=== PATIENT | male | born 1935 | race Caucasian/White ===

== ENCOUNTER 2022-01-06 01:42 | Emergency (ER) | payer OTHER ==
--- OUTSIDE RECORDS SUMMARY | 2022-01-06 01:45 | XMS REPORT | Continuity of Care Document ---
:1935 Author Organization [facility] t Address [address] [place] [address] [address] [place] [address] Care Team Providers Name Role Phone Asked, No Pcp Primary Care Physician Unavailable ASHWIN, NOE Attending Clinician Unavailable ASHWIN, NOE Admitting Clinician Unavailable Problems Condition Condition Condition Status Onset Resolution Last Treating Co mments Source Name Details Category Date Date Treatment Clinician Date Breakdown Breakdown Disease Active 2019-04 [facility] (mechanica (mechanica 0-22 st l) of l) of 00:00: Hospita cardiac cardiac 00 l pulse pulse generator generator (battery), (battery), initial initial encounter encounter AF AF Disease Active 2017-04 [facility] (paroxysma (paroxysma 0-19 st l atrial l atrial 00:00: Hospit a fibrillati fibrillati 00 l on) on) Allergies, Adverse Reactions, Alerts This patient has no known allergies or adverse reactions. Social History Social Habit Start Date Stop Date Quantity Comments Source History of Current smoker [facility] use [facility] Alcohol intake 2020-02-11 2020-02-11 Current drinker [facility] 00:00:00 00:00:00 of alcohol Hospital (finding) Tobacco use and 2018-02-02 2018-02-02 Former smokeless [facility] exposure 00:00:00 00:00:00 tobacco user Hospital Sex Assigned At [birth year] [facility] 00:00:00 00:00:00 Hospital Smoking Status Start Date Stop Date Source Ex-smoker 2018-02-02 00:00:00 2018-02-02 00:00:00 [facility] Medications Ordered Filled Start Stop Current Ordering Indication Dosage Frequency Signature Comments Components Source Medication Medication Date Date Medication? Clinician (SIG) Name Name atorvastati 2019-04 Yes 20mg QD Take 20 mg [facility] n (LIPITOR) 0-[address] 20 MG 19:17: daily. Hospita tablet 11 Default OP l ins metoprolol 2019-04 Yes 25mg QD Take 25 mg M [facility]i succinate 0-[address] XL 19:17: daily. Hospita (TOPROL-XL) 11 l 25 mg 24 hr tablet flecainide 2019-04 Yes 150mg QD Take 150 Me thodi (TAMBOCOR) 0-[address] 100 MG 19:17: mouth Hospita tablet 11 daily. l allopurinol 2019-04 Yes 300mg QD Take 300 M [facility]i (ZYLOPRIM) 0-[address] 300 MG 19:17: mouth Hospita tablet 11 daily. l Procedures This patient has no known procedures. Plan of Care Planned Activity Planned Date Details Comments Source Future Scheduled 2021-12-16 HEPATITIS B VACCINES Met [facility] Test 07:54:46 (1 of 3 - 3-dose series) [code = HEPATITIS B VACCINES (1 of 3 - 3-dose series)] Future Scheduled 2021-12-16 COVID-19 VACCINE (#1) [facility] Test 07:54:46 [code = COVID-19 VACCINE (#1)] Future Scheduled 2021-12-16 SHINGLES VACCINES (1 Met [facility] Test 07:54:46 of 2) [code = SHINGLES VACCINES (1 of 2)] Future Scheduled 2021-12-16 65+ PNEUMOCOCCAL [facility] Test 07:54:46 VACCINE (1 - PCV) [code = 65+ PNEUMOCOCCAL VACCINE (1 - PCV)] Future Scheduled 2021-12-16 INFLUENZA VACCINE [facility] Test 07:54:46 [code = INFLUENZA VACCINE] Encounters Start End Encounter Admission Attending Care Care Encounter Source Date/Time Date/Time Type Type Clinicians Facility Department ID 2020-02-06 2020-02-06 Outpatient [facility] [id number] [place] 00:00:00 00:00:00 NADIM [address] 2019-06-18 2019-06-18 Outpatient [facility] [id number] [place] 00:00:00 00:00:00 NADIM [address] 2019-06-18 2019-06-18 Outpatient [facility] [id number] [place] 00:00:00 00:00:00 NOE [address] Results This patient has no known results.
--- NOTE | 2022-01-06 02:19 | EDPHYS ---
Physician Documentation [facility] Name: Polo Middleton Age: 86 yrs Sex: Male : 1935 Arrival Date: 01/06/2022 Time: 01:44 Bed 5 Private MD: ED Physician Alejandro Bowles HPI: 01/06 02:11 This 86 yrs old Male presents to ER via Ambulatory with complaints of Insect Bite, Leg ms3 Pain. 02:11 86-year-old male with past medical history of hypertension presents to the emergency ms3 department after being stung by ground bees at 3 PM. Patient rates his pain a 10/10 and bilateral lower extremities. Patient denies alleviating or inciting factors. Patient states he took ibuprofen earlier in the day without relief of his pain. Patient denies nausea, vomiting, shortness of breath, throat closing.. Historical: - Allergies: 02:03 No Known Allergies; bb - Home Meds: 02:03 allopurinal [Active]; atorvastatin 40 mg Oral tab 1 tab once daily [Active]; Metoprolol bb Tartrate Oral [Active]; amlodipine oral [Active]; - PMHx: 02:03 Hypertension; bb - Immunization history:: Client reports receiving the 2nd dose of the Covid vaccine, Moderna. - Social history:: Smoking status: Patient denies any tobacco usage or history of. ROS: 02:11 Constitutional: Negative for fever, and chills. ENT: Negative for injury, pain, and ms3 discharge, Neck: Negative for injury, pain, and swelling, Cardiovascular: Negative for chest pain, and palpitations. Respiratory: Negative for shortness of breath, cough, wheezing, and pleuritic chest pain, Abdomen/GI: Negative for abdominal pain, nausea, vomiting, diarrhea, and constipation. 02:11 Neuro: Negative for headache, weakness, numbness, tingling. 02:11 MS/extremity: Positive for Lower extremity pain. 02:11 All other systems are negative. Exam: 02:11 Constitutional: This is a well developed, well nourished patient who is awake, alert, ms3 and in no acute distress. Head/Face: Normocephalic, atraumatic. ENT: Nares patent. No nasal discharge, no septal abnormalities noted. Tympanic membranes are normal and external auditory canals are clear. Oropharynx with no redness, swelling, or masses, exudates, or evidence of obstruction, uvula midline. Mucous membranes moist. Neck: Trachea midline, no cervical lymphadenopathy. Supple, full range of motion without nuchal rigidity, or vertebral point tenderness. No Meningismus. Chest/axilla: Normal chest wall appearance and motion. Nontender with no deformity. Cardiovascular: Regular rate and rhythm with a normal S1 and S2. No gallops, murmurs, or rubs. Normal PMI, no JVD. No pulse deficits. Respiratory: Lungs have equal breath sounds bilaterally, clear to auscultation and percussion. No rales, rhonchi or wheezes noted. No increased work of breathing, no retractions or nasal flaring. Abdomen/GI: Soft, non-tender, with normal bowel sounds. No distension or tympany. No guarding or rebound. No evidence of tenderness throughout. Skin: Warm, dry with normal turgor. Normal color with no rashes, no lesions, and no evidence of cellulitis. MS/ Extremity: Pulses equal, no cyanosis. Neurovascular intact. Full, normal range of motion. Psych: Awake, alert, with orientation to person, place and time. Behavior, mood, and affect are within normal limits. Vital Signs: 02:00 BP 153 / 81; Pulse 70; Resp 16 S; Pulse Ox 95% on R/A; Weight 83.91 kg (R); Height 6 bb ft. 1 in. (185.42 cm) (R); Pain 10/10; 02:02 Temp 98.2; tw5 02:00 Body Mass Index 24.41 (83.91 kg, 185.42 cm) bb MDM: 02:11 Data reviewed: vital signs, nurses notes, and as a result, I will discharge patient. ms3 Counseling: I had a detailed discussion with the patient and/or guardian regarding: the historical points, exam findings, and any diagnostic results supporting the discharge/admit diagnosis, the need for outpatient follow up, to return to the emergency department if symptoms worsen or persist or if there are any questions or concerns that arise at home. Special discussion: I discussed with the patient/guardian in detail that at this point there is no indication for admission to the hospital. It is understood, however, that if the symptoms persist or worsen the patient needs to return immediately for re-evaluation. ED course: Discussed treatment plan with patient. Patient understands and agrees with plan. All questions were answered. Return precautions discussed include worsening symptoms, or any other concerns.. 02:18 Patient medically screened. ms3 Administered Medications: 02:22 Drug: predniSONE 40 mg Route: PO; jb4 02:44 Follow up: Response: No adverse reaction tw5 02:23 Drug: TORadol (ketorolac) 15 mg Route: IM; Site: left deltoid; jb4 02:44 Follow up: Response: No adverse reaction tw5 Disposition Summary: 01/06/22 02:18 Discharge Ordered Location: Home ms3 Condition: Stable ms3 Diagnosis - Insect bite (nonvenomous) of lower leg ms3 Followup: ms3 - With: Private Physician - When: 2 - 3 days - Reason: Recheck today's complaints Discharge Instructions: - Discharge Summary Sheet ms3 - Insect Bite, Adult ms3 Forms: - Medication Reconciliation Form ms3 - Thank You Letter ms3 - Antibiotic Education ms3 - Prescription Opioid Use ms3 Prescriptions: - Medrol (Gasper) 4 mg Oral Tablets, Dose Pack - take 1 tablet by ORAL route as directed - follow package instructions; 1 ms3 packet; Refills: 0, Product Selection Permitted Signatures: Elisa Will RN RN bb Randy Benavides RN RN jb4 Alejandro Bowles DO DO ms3 Miguel Woodardy tw5
--- NOTE | 2022-01-06 02:19 | ER ---
Nurse's Notes [facility] Name: Polo Middleton Age: 86 yrs Sex: Male : 1935 Arrival Date: 01/06/2022 Time: 01:44 Bed 5 Private MD: Diagnosis: Insect bite (nonvenomous) of lower leg Presentation: 01/06 02:00 Chief complaint: Patient states: he was out mowing today and was bitten on the legs by bb a bunch of "ground bees" and the pain is 10/10 and he can't sleep. Coronavirus screen: At this time, the client does not indicate any symptoms associated with coronavirus-19. Ebola Screen: No symptoms or risks identified at this time. Initial Sepsis Screen: Does the patient meet any 2 criteria? No. Patient's initial sepsis screen is negative. Does the patient have a suspected source of infection? No. Patient's initial sepsis screen is negative. Risk Assessment: Do you want to hurt yourself or someone else? Patient reports no desire to harm self or others. Onset of symptoms was January 05, 2022. 02:00 Method Of Arrival: Ambulatory bb 02:00 Acuity: ISAIAS 5 bb Triage Assessment: 02:43 Bite description: bite. General: Appears in no apparent distress. Behavior is calm, tw5 cooperative, appropriate for age. 02:45 Bite description: animal information: vaccination(s) is not applicable. tw5 Historical: - Allergies: 02:03 No Known Allergies; bb - Home Meds: 02:03 allopurinal [Active]; atorvastatin 40 mg Oral tab 1 tab once daily [Active]; Metoprolol bb Tartrate Oral [Active]; amlodipine oral [Active]; - PMHx: 02:03 Hypertension; bb - Immunization history:: Client reports receiving the 2nd dose of the Covid vaccine, Moderna. - Social history:: Smoking status: Patient denies any tobacco usage or history of. Screenin:43 Abuse screen: Denies threats or abuse. Denies injuries from another. Nutritional tw5 screening: No deficits noted. Tuberculosis screening: No symptoms or risk factors identified. Fall Risk None identified. Assessment: 02:43 Pain: Denies pain. tw5 Vital Signs: 02:00 BP 153 / 81; Pulse 70; Resp 16 S; Pulse Ox 95% on R/A; Weight 83.91 kg (R); Height 6 bb ft. 1 in. (185.42 cm) (R); Pain 10/10; 02:02 Temp 98.2; tw5 02:00 Body Mass Index 24.41 (83.91 kg, 185.42 cm) ED Course: 01:44 Patient arrived in ED. bp1 01:59 Alejandro Bowles DO is Attending Physician. ms3 02:02 Raven Woodard is Primary Nurse. tw5 02:03 Triage completed. bb 02:03 Arm band placed on Patient placed in an exam room, on a stretcher, on pulse oximetry. bb 02:43 Patient has correct armband on for positive identification. tw5 02:43 No provider procedures requiring assistance completed. Patient did not have IV access tw5 during this emergency room visit. Administered Medications: 02:22 Drug: predniSONE 40 mg Route: PO; jb4 02:44 Follow up: Response: No adverse reaction tw5 02:23 Drug: TORadol (ketorolac) 15 mg Route: IM; Site: left deltoid; jb4 02:44 Follow up: Response: No adverse reaction tw5 Medication: 02:43 VIS not applicable for this client. tw5 Outcome: 02:18 Discharge ordered by . ms3 02:43 Discharged to home ambulatory. tw5 02:43 Condition: good 02:43 Discharge instructions given to patient, Instructed on discharge instructions, follow up and referral plans. Demonstrated understanding of instructions, follow-up care, medications, Prescriptions given X 1. 02:45 Patient left the ED. tw5 Signatures: Elisa Will RN RN Randy Benavides RN RN jb Alejandro Bowles DO DO ms3 Roxy Russo bp1 Raven Woodard tw5
[2022-01-06] MEDS ORDERED: predniSONE 20 MG TAB ONE (02:29)
[2022-01-06] MEDS ORDERED: KETOROLAC 30 MG/ML INJ ONE (02:29)
[2022-01-07 20:29] VITALS: BP 153/81; O2SAT 95
[2022-01-07 20:30] VITALS: TEMP 98.2
== END 2022-01-06 02:45 | disposition home or self-care (01) ==
LOC: ER 01:42
DX: S80.862A Insect bite (nonvenomous), left lower leg, initial encounter (principal); I10 Essential (primary) hypertension
CPT/HCPCS: 96372; 99283; J7512

== ENCOUNTER 2023-09-15 12:31 | Emergency (ER) | payer OTHER ==
[2023-09-15] MEDS ORDERED: MAGNESIUM SULFATE 1 gm IVPB 1 GM/100 ML BAG IV ONE ×2 (13:07→14:10)
[2023-09-15] MEDS ORDERED: NA CHLORIDE 0.9% 1,000 ML ONE (13:07)
[2023-09-15] MEDS ORDERED: ASPIRIN 81 MG CHEWABLE TABLET ONE (13:07)
--- NOTE | 2023-09-15 13:18 | EDPHYS ---
Physician Documentation [facility] Name: Polo Middleton Age: 87 yrs Sex: Male : 1935 Arrival Date: 09/15/2023 Time: : Bed 17 Private MD: ED Physician Iker Guardado HPI: 09/14 13:04 This 87 yrs old Male presents to ER via Ambulatory with complaints of Sent By [facility] DR-Pacemaker. 13:04 The patient presents with a history of heart racing. Context: The symptoms occur during [facility] sleep. Onset: The symptoms/episode began/occurred last night. Duration: The patient or guardian reports a single episode, that is now resolved. Modifying factors: The symptoms are aggravated by nothing. The symptoms are alleviated by nothing. Associated signs and symptoms: The patient has no apparent associated signs or symptoms. Severity of symptoms: At their worst the symptoms were mild in the emergency department the symptoms have improved markedly. The patient has not experienced similar symptoms in the past. Historical: - Allergies: 12:41 No Known Allergies; as6 - PMHx: 12:41 Hypertension; Atrial fibrillation; as6 - PSHx: 12:41 pacemaker; as6 - Immunization history:: Adult Immunizations up to date. - Infectious Disease History:: Denies. - Social history:: Smoking status: Patient denies any tobacco usage or history of. - Family history:: pertinent for. ROS: 13:04 Constitutional: Negative for fever, chills, and weight loss, Eyes: Negative for injury, carmelita pain, redness, and discharge, ENT: Negative for injury, pain, and discharge, Neck: Negative for injury, pain, and swelling, Respiratory: Negative for shortness of breath, cough, wheezing, and pleuritic chest pain, Abdomen/GI: Negative for abdominal pain, nausea, vomiting, diarrhea, and constipation, Back: Negative for injury and pain, : Negative for injury, bleeding, discharge, and swelling, MS/Extremity: Negative for injury and deformity, Skin: Negative for injury, rash, and discoloration, Neuro: Negative for headache, weakness, numbness, tingling, and seizure, Psych: Negative for depression, anxiety, suicide ideation, homicidal ideation, and hallucinations, Allergy/Immunology: Negative for hives, rash, and allergies, Endocrine: Negative for neck swelling, polydipsia, polyuria, polyphagia, and marked weight changes, Hematologic/Lymphatic: Negative for swollen nodes, abnormal bleeding, and unusual bruising, 13:04 Cardiovascular: Positive for palpitations, Exam: 13:04 Constitutional: This is a well developed, well nourished patient who is awake, alert, carmelita and in no acute distress. Head/Face: Normocephalic, atraumatic. Eyes: Pupils equal round and reactive to light, extra-ocular motions intact. Lids and lashes normal. Conjunctiva and sclera are non-icteric and not injected. Cornea within normal limits. Periorbital areas with no swelling, redness, or edema. ENT: Nares patent. No nasal discharge, no septal abnormalities noted. Tympanic membranes are normal and external auditory canals are clear. Oropharynx with no redness, swelling, or masses, exudates, or evidence of obstruction, uvula midline. Mucous membranes moist. Neck: Trachea midline, no thyromegaly or masses palpated, and no cervical lymphadenopathy. Supple, full range of motion without nuchal rigidity, or vertebral point tenderness. No Meningismus. Chest/axilla: Normal chest wall appearance and motion. Nontender with no deformity. No lesions are appreciated. Cardiovascular: Regular rate and rhythm with a normal S1 and S2. No gallops, murmurs, or rubs. Normal PMI, no JVD. No pulse deficits. Respiratory: Lungs have equal breath sounds bilaterally, clear to auscultation and percussion. No rales, rhonchi or wheezes noted. No increased work of breathing, no retractions or nasal flaring. Abdomen/GI: Soft, non-tender, with normal bowel sounds. No distension or tympany. No guarding or rebound. No evidence of tenderness throughout. Back: No spinal tenderness. No costovertebral tenderness. Full range of motion. Male : Normal genitalia with no discharge or lesions. Skin: Warm, dry with normal turgor. Normal color with no rashes, no lesions, and no evidence of cellulitis. MS/ Extremity: Pulses equal, no cyanosis. Neurovascular intact. Full, normal range of motion. Neuro: Awake and alert, GCS 15, oriented to person, place, time, and situation. Cranial nerves II-XII grossly intact. Motor strength 5/5 in all extremities. Sensory grossly intact. Cerebellar exam normal. Normal gait. Psych: Awake, alert, with orientation to person, place and time. Behavior, mood, and affect are within normal limits. 13:04 ECG was reviewed by the Attending Physician. Vital Signs: 12:40 BP 142 / 85; Pulse 72; Resp 16 S; Temp 97.9(TE); Pulse Ox 100% on R/A; Weight 81.65 kg as6 (R); Height 6 ft. 1 in. (R); Pain 0/10; 13:43 BP 131 / 64; Pulse 62; Resp 15 S; Pulse Ox 98% on R/A; Pain 0/10; kc6 15:01 BP 143 / 85; Pulse 70; Resp 18 S; Pulse Ox 99% on R/A; kc6 16:44 BP 142 / 82; Pulse 71; Resp 19 S; Pulse Ox 97% on R/A; kc6 12:40 Body Mass Index 23.75 (81.65 kg, 185.42 cm) as6 12:40 Pain Scale: Adult as6 13:43 Pain Scale: Adult kc6 MDM: 12:48 Patient medically screened. [facility] 13:15 Differential diagnosis: arrythmia, dehydration. Data reviewed: vital signs, nurses carmelita notes, lab test result(s), EKG, radiologic studies, plain films. Consideration of Admission/Observation. Consideration of Admission/Observation Escalation of care including admission/observation considered. I considered the following discharge prescriptions or medication management in the emergency department Medications were administered in the Emergency Department. See MAR. Independent interpretation of the following test(s) in the Emergency Department EKG: See my EKG interpretation above. Test considered but Not performed: Ultrasound no 2 d echo. Historians other than the Patient: pt well in formed. Care significantly affected by the following chronic conditions: Congestive Heart Failure, a fib. Counseling: I had a detailed discussion with the patient and/or guardian regarding the historical points, exam findings, and any diagnostic results supporting the discharge/admit diagnosis, lab results, radiology results, the need to transfer to another facility, for higher level of care, [facility] does not immediately have the required specialist. 09/14 12:47 Order name: Basic Metabolic Panel; Complete Time: 14:08 [facility] 09/14 12:47 Order name: CBC with Diff; Complete Time: 14:08 [facility] 09/14 12:47 Order name: LFT's; Complete Time: 14:08 [facility] 09/14 12:47 Order name: Magnesium; Complete Time: 14: [facility] 09/14 12:47 Order name: NT PRO-BNP; Complete Time: 14: [facility] 09/14 12:47 Order name: PT-INR; Complete Time: 14:08 [facility] 09/14 12:47 Order name: Troponin HS; Complete Time: 14: [facility] 09/14 12:47 Order name: XRAY Chest (1 view); Complete Time: 14: [facility] 09/14 12:47 Order name: Cardiac monitoring; Complete Time: 13: [facility] 09/14 12:47 Order name: EKG - Nurse/Tech; Complete Time: 13: [facility] 09/14 12:47 Order name: IV Saline Lock; Complete Time: 13:24 [facility] 09/14 12:47 Order name: Labs collected and sent; Complete Time: 13:24 [facility] 09/14 12:47 Order name: O2 Per Protocol; Complete Time: 13:24 [facility] 09/14 12:47 Order name: O2 Sat Monitoring; Complete Time: 13:24 [facility] EC:04 Rate is 63 beats/min. Rhythm is regular. QRS [place] is Normal. [place] interval is normal. QRS carmelita interval is normal. QT interval is normal. No Q waves. T waves are Normal. Clinical impression: Abnormal EKG without significant change and No evidence of ischemia. Interpreted by me. Reviewed by me. Administered Medications: 13:24 Drug: NS 0.9% IV 1000 ml IV at 125 ml/hr continuous Route: IV; Rate: 125 ml/hr; Site: [facility] right antecubital; 13:24 Drug: Magnesium Sulfate IVPB 1 grams IVPB once over 1 hrs Route: IVPB; Infused Over: 1 kc6 hrs; Site: right antecubital; 15:02 Follow up: Response: No adverse reaction; IV Status: Completed infusion; IV Intake: kc6 100ml 13:25 Drug: Aspirin PO Chewable Tablet 81 mg PO once Route: PO; kc6 13:43 Follow up: Response: No adverse reaction [facility] 14:39 Drug: Magnesium Sulfate IVPB 1 grams IVPB once over 1 hrs Route: IVPB; Infused Over: 1 kc6 hrs; Site: right antecubital; 16:44 Follow up: Response: No adverse reaction; IV Status: Completed infusion; IV Intake: kc6 100ml Disposition Summary: 09/15/23 13:17 Transfer Ordered Notes: Transfer Location: [facility] carmelita Reason: Higher level of care carmelita Condition: Fair carmelita Problem: new carmelita Symptoms: have improved carmelita Accepting Physician: to [facility](09/15/23 16:53) kc6 Diagnosis - Ventricular tachycardia carmelita - Presence of cardiac pacemaker carmelita Forms: - Medication Reconciliation Form carmelita - SBAR form carmelita Signatures: Dispatcher [employer] EDMS Iker Guardado MD MD cha Slawson, Ashby, RN RN as6 Magdalena Gilbert RN RN kc6 Corrections: (The following items were deleted from the chart) 12:48 12:47 Chest Single View+[email or web address] ordered. EDNY EDMS 16:53 13:17 to [facility] carmelita kc6
--- NOTE | 2023-09-15 13:18 | ER ---
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 Coronavirus screen: At this time, the client does not indicate any symptoms associated with coronavirus-19. Ebola Screen: No symptoms or risks identified at this time. Initial Sepsis Screen: Does the patient meet any 2 criteria? No. Patient's initial sepsis screen is negative. Does the patient have a suspected source of infection? No. Patient's initial sepsis screen is negative. Risk Assessment: Do you want to hurt yourself or someone else? Patient reports no desire to harm self or others. Onset of symptoms was September 14, 2023. 12:40 Method Of Arrival: Ambulatory as6 12:40 Acuity: ISAIAS 2 as6 Historical: - Allergies: 12:41 No Known Allergies; as6 - PMHx: 12:41 Hypertension; Atrial fibrillation; as6 - PSHx: 12:41 pacemaker; as6 - Immunization history:: Adult Immunizations up to date. - Infectious Disease History:: Denies. - Social history:: Smoking status: Patient denies any tobacco usage or history of. - Family history:: pertinent for. Screenin:41 [facility] ED Fall Risk Assessment (Adult) History of falling in the last 3 months, kc6 including since admission No falls in past 3 months (0 pts) Confusion or Disorientation No (0 pts) Intoxicated or Sedated No (0 pts) Impaired Gait No (0 pts) Mobility Assist Device Used No (0 pt) Altered Elimination No (0 pt) Score/Fall Risk Level 0 - 2 = Low Risk. Abuse screen: Denies threats or abuse. Denies injuries from another. Nutritional screening: No deficits noted. Tuberculosis screening: No symptoms or risk factors identified. Assessment: 13:42 General: Appears in no apparent distress. comfortable, well groomed, well developed, kc6 Behavior is calm, cooperative, appropriate for age. Pain: Denies pain. Neuro: Level of Consciousness is awake, alert, obeys commands, Oriented to person, place, time, situation, Appropriate for age. Cardiovascular: Reports palpitations, Denies chest pain, shortness of breath, Heart tones S1 S2 present Capillary refill < 3 seconds Rhythm is A-V sequential pacer. Respiratory: Airway is patent Trachea midline Respiratory effort is even, unlabored, Respiratory pattern is regular, symmetrical. GI: No signs and/or symptoms were reported involving the gastrointestinal system. : No signs and/or symptoms were reported regarding the genitourinary system. EENT: No signs and/or symptoms were reported regarding the EENT system. Derm: No signs and/or symptoms reported regarding the dermatologic system. Skin is intact, is healthy with good turgor, Skin is pink, warm \T\ dry. Musculoskeletal: No signs and/or symptoms reported regarding the musculoskeletal system. Circulation, motion, and sensation intact. Capillary refill < 3 seconds, Range of motion: intact in all extremities. 14:00 Reassessment: PT APPEARS TO BE HAVING RUNS OF VENTRICULAR TACHYCARDIA, THEN SELF kc6 CONVERTING VIA PACEMAKER. DR. CAMARENA NOTIFIED. VERBAL ORDERS RECEIVED TO ADMIN 1GM MORE OF IV MAGNESIUM. PT DENIES CHEST PAIN OR SOB. REPORTS FEELING LIGHT HEADED WHEN THE EPISODES OCCUR. 14:31 Reassessment: ATTEMPTED TO CALL REPORT TO [facility] [place]. NO ANSWER AT THIS TIME. kc6 15:00 Reassessment: Patient appears in no apparent distress at this time. No changes from kc6 previously documented assessment. Patient and/or family updated on plan of care and expected duration. Pain level reassessed. Patient is alert, oriented x 3, equal unlabored respirations, skin warm/dry/pink. 16:44 Reassessment: Patient appears in no apparent distress at this time. No changes from kc6 previously documented assessment. Patient and/or family updated on plan of care and expected duration. Pain level reassessed. Patient is alert, oriented x 3, equal unlabored respirations, skin warm/dry/pink. Vital Signs: 12:40 BP 142 / 85; Pulse 72; Resp 16 S; Temp 97.9(TE); Pulse Ox 100% on R/A; Weight 81.65 kg as6 (R); Height 6 ft. 1 in. (R); Pain 0/10; 13:43 BP 131 / 64; Pulse 62; Resp 15 S; Pulse Ox 98% on R/A; Pain 0/10; kc6 15:01 BP 143 / 85; Pulse 70; Resp 18 S; Pulse Ox 99% on R/A; kc6 16:44 BP 142 / 82; Pulse 71; Resp 19 S; Pulse Ox 97% on R/A; kc6 12:40 Body Mass Index 23.75 (81.65 kg, 185.42 cm) as6 12:40 Pain Scale: Adult as6 13:43 Pain Scale: Adult kc6 Vitals: 14:00 Cardiac Rhythm Assessment Junctional tach. kc6 ED Course: 12:34 Patient arrived in ED. mg5 12:40 Arm band placed on. as6 12:41 Triage completed. as6 12:44 Magdalena Gilbert, NORAH is Primary Nurse. kc6 12:46 Iker Camarena MD is Attending Physician. carmelita 13:11 XRAY Chest (1 view) In Process Unspecified. EDMS 13:41 Patient has correct armband on for positive identification. Bed in low position. Call kc6 light in reach. Side rails up X 1. Client placed on continuous cardiac and pulse oximetry monitoring. NIBP monitoring applied. 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 Pillow given. 13:41 Inserted saline lock: 20 gauge in right antecubital area, using aseptic technique. kc6 Blood collected. 13:52 \T\[address] Camarena with Josie from the [facility] center at the request of patient's fire control system installer\T\1327 Connected the hospitalist with Dr. Camarena for patient transfer consultation/ \T\13[address] given to Dr. Camarena by Josie Hill, patient has been accepted to [facility], Dr. Randy Mejias has accepted the patient in transfer, once the face sheet has been faxed to [phone] she will call back with a room number and a number for report. 14:26 Josie from [facility] called/ patient is going to [facility] 920 report to be called to [phone]. 16:49 No provider procedures requiring assistance completed. Patient transferred, IV remains kc6 in place. Administered Medications: 13:24 Drug: NS 0.9% IV 1000 ml IV at 125 ml/hr continuous Route: IV; Rate: 125 ml/hr; Site: kc6 right antecubital; 13:24 Drug: Magnesium Sulfate IVPB 1 grams IVPB once over 1 hrs Route: IVPB; Infused Over: 1 kc6 hrs; Site: right antecubital; 15:02 Follow up: Response: No adverse reaction; IV Status: Completed infusion; IV Intake: kc6 100ml 13:25 Drug: Aspirin PO Chewable Tablet 81 mg PO once Route: PO; kc6 13:43 Follow up: Response: No adverse reaction kc6 14:39 Drug: Magnesium Sulfate IVPB 1 grams IVPB once over 1 hrs Route: IVPB; Infused Over: 1 kc6 hrs; Site: right antecubital; 16:44 Follow up: Response: No adverse reaction; IV Status: Completed infusion; IV Intake: kc6 100ml Medication: 16:50 VIS not applicable for this client. kc6 Intake: 15:02 IV: 100ml; Total: 100ml. kc6 16:44 IV: 100ml; Total: 200ml. kc6 Outcome: 13:17 ER care complete, transfer ordered by MD. mae 16:50 Transferred by ground EMS to [facility], Transfer form completed. Note: kc6 REPORT CALLED TO NORAH YAP 16:50 Condition: stable 16:50 Instructed on the need for transfer, 16:53 Patient left the ED. kc6 Signatures: Dispatcher [employer] Iker Valverde MD MD cha Botello, Elizabeth eb Slawson, Ashby, RN RN [email or web address] Magdalena Gilbert RN RN kc6 Letty [facility] [place]
[2023-09-15 13:35] LABS: Absolute Basophils 0.1 K/uL (0-0.5); Absolute Eosinophils 0.2 K/uL (0-0.5); Absolute Lymphocytes (CBC) 1.7 K/uL (0.7-4.9); Absolute Monocytes 0.9 K/uL (0.1-1.3); Absolute Neutrophil 5.5 K/uL (1.8-8.0); Basophils % 0.8 % (0-1.3); Eosinophils % 2.5 % (0-4.4); Hematocrit 40.9 % (39.6-49.0); Hemoglobin 13.8 g/dL (13.6-17.9); Lymphocytes % 20.5 % (15.3-44.8); MCH 34.1 pg (27.0-35.0); MCHC 33.8 g/dL (32.0-36.0); MCV 100.7 fL (80-100); MPV 8.5 fL (7.6-11.3); Neutrophils % 65.2 % (41.7-73.7); Platelets 215 thou/uL (152-406); RBC Red Blood Cell Count 4.06 M/uL (4.33-5.43); Red Cell Distribution Width 14.3 % (12.1-15.2)
[2023-09-15 13:37] LABS: PT Prothrombin Time 12.2 SECONDS (9.5-12.5); Protime INR 1.11
--- NOTE | 2023-09-15 13:42 | RAD REPORT ---
EXAM DESCRIPTION: Emigdio Single View09/15/2023 1:10 pm CLINICAL HISTORY: CHEST PAIN COMPARISON: Abdomen Acute Series dated 10/31/2016 TECHNIQUE: Portable AP view of the chest. FINDINGS: The lungs are clear apart from left basilar atelectasis. No pneumothorax or effusion. The cardiomediastinal contours are unremarkable. IMPRESSION: No acute cardiopulmonary process.
[2023-09-15 13:52] LABS: Albumin 3.6 g/dL (3.4-5.0); Anion Gap 7.6 mEq/L (5.0-15.0); Bilirubin Direct 0.3 mg/dL (0-0.2); Bilirubin Indirect, Calculated 0.9 mg/dL (0.2-0.8); Bilirubin Total 1.2 mg/dL (0.2-1.0); Globulin 3.6 g/dL (2.3-3.5); Magnesium 1.5 mg/dL (1.6-2.4); Potassium 3.6 mEq/L (3.5-5.1); Protein, Total 7.2 g/dL (6.4-8.2); Troponin High Sensitivity 17.4 pg/mL (<58.9)
[2023-09-15] MEDS ORDERED: NA CHLORIDE 0.9% 0 ML ONE (14:08)
[2023-09-15] MEDS ORDERED: AMIODARONE HCL 150 MG/3 ML INJ IV ONE (14:08)
[2023-09-15] MEDS ORDERED: AMIODARONE IN DEXTROSE,ISO-OSM 0 MG/0 ML BAG IV ONE (14:08)
[2023-09-15 17:18] VITALS: BP 142/82; TEMP 97.9; O2SAT 97
--- NOTE | 2023-09-16 13:55 | EKG ---
Test Date: 2023-09-15 Test Time: 13:04:06 Livestock Yard Attendant: SOLO MEASUREMENT RESULTS: Intervals: Rate: 63 MN: 242 QRSD: 182 QT: 460 QTc: 470 [place]: P: 82 MN: 242 QRS: 253 T: 57 INTERPRETIVE STATEMENTS: AV dual-paced rhythm with prolonged AV conduction with occasional premature ventricular complexes Abnormal ECG No previous ECG available for comparison Electronically Signed On 09-16-23 13:53:36 CDT by Ervin Higginbotham
== END 2023-09-15 16:53 | disposition short-term general hospital (02) ==
LOC: ER 12:31
DX: I47.20 Ventricular tachycardia, unspecified (principal); Z95.0 Presence of cardiac pacemaker; I10 Essential (primary) hypertension; I48.91 Unspecified atrial fibrillation
CPT/HCPCS: 96365; 93005; 85025; 80048; 36415; 83735; 85610; 80076; 84484; 83880; 71045; 99285; 96366; J3475 ×2; J7030; J0282